=== PATIENT | male | born 1985 | race Two or more races ===

== ENCOUNTER 2019-05-14 13:10 | Emergency (ER) | payer SELFPAY ==
[~2019-05-14] VITALS: Ht 170.2 cm; Wt 79.4 kg
[2019-05-14 13:19] VITALS: BP 143/96
[2019-05-14] MEDS ORDERED: ONDANSETRON ODT 4 MG TAB.RAPDIS PO ONE (13:30)
[2019-05-14] MEDS ORDERED: LIDO:MAALOX 1:1 20 ML SINGLE DOSE. PO ONE (13:30)
[2019-05-14] MEDS ORDERED: ONDA4TAB12 PO (13:33)
[2019-05-14] MEDS ORDERED: RANI-376 PO (13:33)
--- NOTE | 2019-05-14 13:33 | PHYS DOC ---
Past History Past Medical History: GERD Past Surgical History: No Surgical History Alcohol Use: None Drug Use: None Adult General Chief Complaint Chief Complaint: CHEST PAIN HPI HPI Patient is an otherwise healthy 33-year-old male who presents with epigastric discomfort. He denies any radiation. He denies any melena or hematemesis. He states this started this morning and he took some Tums. It got better for a period time and then he started to look on the Internet and got himself anxious over what could possibly be. He denies any shortness of breath dyspnea on exertion. He denies any sweats. He denies any excessive nonsteroidal use.[] Review of Systems Review of Systems Constitutional: Denies fever or chills [] Eyes: Denies change in visual acuity, redness, or eye pain [] HENT: Denies nasal congestion or sore throat [] Respiratory: Denies cough or shortness of breath [] Cardiovascular: No additional information not addressed in HPI [] GI: Per history of present illness[] : Denies dysuria or hematuria [] Musculoskeletal: Denies back pain or joint pain [] Integument: Denies rash or skin lesions [] Neurologic: Denies headache, focal weakness or sensory changes [] Endocrine: Denies polyuria or polydipsia [] All other systems were reviewed and found to be within normal limits, except as documented in this note. Physical Exam Physical Exam Constitutional: Well developed, well nourished, no acute distress, non-toxic appearance. [] HENT: Normocephalic, atraumatic, bilateral external ears normal, oropharynx moist, no oral exudates, nose normal. [] Eyes: PERRLA, EOMI, conjunctiva normal, no discharge. [] Neck: Normal range of motion, no tenderness, supple, no stridor. [] Cardiovascular:Heart rate regular rhythm, no murmur [] Lungs & Thorax: Bilateral breath sounds clear to auscultation [] Abdomen: Mild epigastric tenderness without. [] Skin: Warm, dry, no erythema, no rash. [] Back: No tenderness, no CVA tenderness. [] Extremities: No tenderness, no cyanosis, no clubbing, ROM intact, no edema. [] Neurologic: Alert and oriented X 3, normal motor function, normal sensory function, no focal deficits noted. [] Psychologic: Very anxious. [] Current Patient Data Vital Signs Vital Signs Date Time Temp Pulse Resp B/P (MAP) Pulse Ox O2 Delivery O2 Flow Rate FiO2 05/14/19 13:19 98.0 97 16 98 Room Air EKG EKG [] Radiology/Procedures Radiology/Procedures [] Course & Med Decision Making Course & Med Decision Making Pertinent Labs and Imaging studies reviewed. (See chart for details) [] Dragon Disclaimer Dragon Disclaimer This electronic medical record was generated, in whole or in part, using a voice recognition dictation system. Departure Departure: Impression: Primary Impression: Epigastric pain Disposition: HOME, SELF-CARE Condition: STABLE Referrals: PCP,EROS (PCP) Patient Instructions: Abdominal Pain, Gastritis, Adult Additional Instructions: Take medication as directed. Return to the emergency department with any new or concerning symptoms Scripts Ondansetron (ONDANSETRON ODT) 4 Mg Tab.rapdis 1 TAB PO PRN Q6-8HRS for NAUSEA, #16 TAB Prov: DIMITRY GROSSMAN DO 05/14/19 Ranitidine Hcl (ZANTAC) 150 Mg Tablet 1 TAB PO BID for gastritis for 30 Days, #60 TAB 0 Refills Prov: DIMITRY GROSSMAN DO 05/14/19 DIMITRY GROSSMAN DO May 14, 2019 13:33
--- NOTE | 2019-05-16 14:56 | EKG ---
[address] [address] Test Date: 2019-05-14 Test Time: 13:16:35 Pat Name: JANINE SANCHEZ Department: Room: Gender: M Banana Handler: KELBY : 1985 Requested By: DIMITRY GROSSMAN Order Number: [id number] Reading MD: René Ryan MD Measurements Intervals [place] Rate: 99 P: 72 NE: 180 QRS: -16 QRSD: 102 T: 62 QT: 348 QTc: 452 Interpretive Statements SINUS RHYTHM Electronically Signed On 06-23-2019 8:16:18 BAND CUTTER by René Ryan MD
== END 2019-05-14 13:50 | disposition home or self-care (01) ==
LOC: ER 13:10
DX: R10.13 Epigastric pain (principal); K21.9 Gastro-esophageal reflux disease without esophagitis
CPT/HCPCS: 99283; Q0162

== ENCOUNTER 2019-07-18 12:08 | Emergency (ER) | payer SELFPAY ==
[~2019-07-18] VITALS: Ht 167.6 cm; Wt 79.7 kg
[~2019-07-18 12:08] MED LIST: ONDA4TAB12 PO; RANI-376 PO
--- NOTE | 2019-07-18 13:07 | PHYS DOC ---
Past History Past Medical History: GERD Past Surgical History: No Surgical History Alcohol Use: None Drug Use: None Adult General Chief Complaint Chief Complaint: NAUSEA/VOMITING/DIARRHEA HPI HPI 33-year-old male presents with persistent nausea and third. The patient uses Zofran and [id number] omeprazole. He is still having a lot of reflux symptoms. He denies vomiting. He has no new complaints. He does not have a primary care physician. He has not had an EGD done in 10 years. Review of Systems Review of Systems Constitutional: Denies fever or chills [] Eyes: Denies change in visual acuity, redness, or eye pain [] HENT: Denies nasal congestion or sore throat [] Respiratory: Denies cough or shortness of breath [] Cardiovascular: No additional information not addressed in HPI [] GI: Nausea. Denies abdominal pain,vomiting, bloody stools or diarrhea [] : Denies dysuria or hematuria [] Musculoskeletal: Denies back pain or joint pain [] Integument: Denies rash or skin lesions [] Neurologic: Denies headache, focal weakness or sensory changes [] Endocrine: Denies polyuria or polydipsia [] All other systems were reviewed and found to be within normal limits, except as documented in this note. Allergies Allergies Allergies Coded Allergies Type Severity Reaction Last Updated Verified No Known Drug Allergies 07/18/19 No Physical Exam Physical Exam Constitutional: Well developed, well nourished, no acute distress, non-toxic appearance. [] HENT: Normocephalic, atraumatic, bilateral external ears normal, oropharynx moist, no oral exudates, nose normal. [] Eyes: PERRLA, EOMI, conjunctiva normal, no discharge. [] Neck: Normal range of motion, no tenderness, supple, no stridor. [] Cardiovascular:Heart rate regular rhythm, no murmur [] Lungs & Thorax: Bilateral breath sounds clear to auscultation [] Abdomen: Bowel sounds normal, soft, no tenderness, no masses, no pulsatile masses. [] Skin: Warm, dry, no erythema, no rash. [] Back: No tenderness, no CVA tenderness. [] Extremities: No tenderness, no cyanosis, no clubbing, ROM intact, no edema. [] Neurologic: Alert and oriented X 3, normal motor function, normal sensory function, no focal deficits noted. [] Psychologic: Affect normal, judgement normal, mood normal. [] Current Patient Data Vital Signs Vital Signs Date Time Temp Pulse Resp B/P (MAP) Pulse Ox O2 Delivery O2 Flow Rate FiO2 07/18/19 12:20 98.4 99 18 96 EKG EKG [] Radiology/Procedures Radiology/Procedures [] Course & Med Decision Making Course & Med Decision Making Pertinent Labs and Imaging studies reviewed. (See chart for details) We do not believe is anything acutely to do for the patient. I have given him advice about increasing his omeprazole dose to 40 mg daily and to try adding Zantac on top of that. He needs to see a GI specialist and have another scope done. Patient states verbal understanding he is stable for discharge at this t [facility]. [] Dragon Disclaimer Dragon Disclaimer This electronic medical record was generated, in whole or in part, using a voice recognition dictation system. Departure Departure: Impression: Primary Impression: GERD (gastroesophageal reflux disease) Disposition: HOME, SELF-CARE Condition: STABLE Referrals: PCP,NO (PCP) Patient Instructions: Diet for Gastroesophageal Reflux Disease, Adult, [id number], Gastroesophageal Reflux Disease, Adult, [id number] Problem Qualifiers Primary Impression: GERD (gastroesophageal reflux disease) Esophagitis presence: with esophagitis Qualified Codes: K21.0 - Gastro- esophageal reflux disease with esophagitis HARITHA NAZARIO DO Jul 18, 2019 13:07
[2019-07-18 13:30] VITALS: BP 137/83
== END 2019-07-18 13:10 | disposition home or self-care (01) ==
LOC: ER 12:08
DX: K21.0 Gastro-esophageal reflux disease with esophagitis (principal)
CPT/HCPCS: 99281